=== PATIENT | female | born 1950 | race Two or more races ===

== ENCOUNTER 2019-06-11 09:31 | Outpatient (CLI) | payer OTHER | END 2019-06-11 09:35 | disposition home or self-care (01) | LOC: SONOGRAMA 09:31 | DX: E04.2 Nontoxic multinodular goiter (principal) ==

== ENCOUNTER 2020-11-22 07:24 | Outpatient (CLI) | payer OTHER | END 2020-11-22 07:26 | disposition home or self-care (01) | LOC: SONOGRAMA 07:24 | DX: E04.2 Nontoxic multinodular goiter (principal) ==